=== PATIENT | female | born 1990 | race Caucasian/White ===

== ENCOUNTER 2017-04-04 08:38 | Emergency (ER) | payer BC, OTHER ==
[2017-04-04 09:32] LABS: URINE SOURCE CLEAN CATCH
[2017-04-04 09:36] LABS: MICRO INDICATED? NO; URINE APPEARANCE CLEAR; URINE BILIRUBIN NEG (NEG); URINE BLOOD NEG (NEG); URINE COLOR YELLOW; URINE GLUCOSE NEG (NORM); URINE KETONE NEG (NEG); URINE LEUKOCYTE ESTERASE NEG (NEG); URINE NITRATE NEG (NEG); URINE PROTEIN NEG (NEG); URINE SPECIFIC GRAVITY 1.015 (1.003-1.035); URINE UROBILINOGEN 0.2 MG/DL (NORM)
[2017-04-06 22:07] LABS: CHLAMYDIA TRACH Not Detected (Not Detected); N GONOR Not Detected (Not Detected)
== END 2017-04-04 10:43 | disposition home or self-care (01) ==
LOC: SED 08:38
PROVIDERS: Student in an Organized Health Care Education/Training Program
DX: N72 Inflammatory disease of cervix uteri (principal); N89.8 Other specified noninflammatory disorders of vagina; F17.200 Nicotine dependence, unspecified, uncomplicated
CPT/HCPCS: 81003; 84703; 87491; 87591; 87808; 87905; 96372; 99283; J0696